=== PATIENT | male | born 1990 | race Two or more races ===

== ENCOUNTER 2017-09-27 01:56 | Inpatient (IN) | payer MEDICAID ==
[~2017-09-27] VITALS: Ht 175.3 cm; Wt 66.7 kg
[2017-09-27] VITALS (11 sets, daily range): BP systolic 107–140; BP diastolic 61–93
[2017-09-27] MEDS ORDERED: LORazepam 2 MG TABLET PO PRN (04:00)
[2017-09-27] MEDS ORDERED: ONDANSETRON HCL 4 MG TABLET PO PRN (06:45)
[2017-09-27] MEDS ORDERED: CloNIDine HCL 0.1 MG TABLET PO PRN (06:45)
[2017-09-27] MEDS ORDERED: IBUPROFEN 400 MG TABLET PO PRN (06:45)
[2017-09-27] MEDS ORDERED: MAGNESIUM HYDROXIDE SUSPENSION 30 ML UDCUP PO PRN (06:45)
[2017-09-27] MEDS ORDERED: MAG HYDROX/AL HYDROX/SIMETH ES 30 ML SUSPENSION UDCUP PO PRN (06:45)
[2017-09-27] MEDS ORDERED: DOCUSATE SODIUM 100 MG CAPSULE PO PRN (06:45)
[2017-09-27] MEDS ORDERED: LOPERAMIDE HCL 2 MG CAPSULE PO PRN (06:45)
[2017-09-27] MEDS ORDERED: ACETAMINOPHEN 325 MG TABLET PO PRN (06:45)
[2017-09-27] MEDS ORDERED: ALBUTEROL SULFATE HFA 90 MCG/PUFF 8 GM INHALER IH PRN (06:45)
[2017-09-27] MEDS ORDERED: PETROLATUM,WHITE 71 GM JELLY TP PRN (06:45)
[2017-09-27] MEDS: NICOTINE 14 MG/24 HOUR PATCH TD SCH (08:31)
[2017-09-27 08:49] LABS: EOSINOPHILS % (AUTO) 3.1 % (1.0-6.0); HEMATOCRIT 45.8 % (41-53); HEMOGLOBIN 15.2 g/dL (13.5-17.5); MEAN CORPUSCULAR HGB CONC 33.2 G/dL (31.0-37.0); MEAN CORPUSCULAR VOLUME 87 fL (80-100); MONOCYTES # (AUTO) 0.6 K/uL (0.1-1.0); MONOCYTES % (AUTO) 7.9 % (2.0-9.0); NEUTROPHILS # (AUTO) 3.4 K/uL (1.8-7.7); PLATELET COUNT (AUTO) 288 K/uL (150-450); RED BLOOD CELL COUNT(AUTO) 5.24 MIL/uL (4.50-5.90); RED CELL DISTRIBUTION WIDTH 13.7 % (11.5-14.5)
[2017-09-27 08:59] LABS: HEMOGLOBIN A1C 5.6 % (4.5-6.2)
[2017-09-27 09:04] LABS: AMPHET/METH SCREEN,URINE NEGATIVE (NEGATIVE); BARBITURATE SCREEN, URINE NEGATIVE (NEGATIVE); BENZODIAZEPINES SCREEN,URINE NEGATIVE (NEGATIVE); CANNABINOID SCREEN,URINE POSITIVE (NEGATIVE); COCAINE SCREEN,URINE POSITIVE (NEGATIVE); METHADONE SCREEN, URINE NEGATIVE (NEGATIVE); OPIATE SCREEN,URINE NEGATIVE (NEGATIVE); PHENCYCLIDINE SCREEN,URINE NEGATIVE (NEGATIVE)
[2017-09-27 09:18] LABS: ALANINE AMINOTRANSFERASE 32 U/L (12-78); ALKALINE PHOSPHATASE 89 U/L (46-116); ANION GAP 10 mmol/L (8-16); ASPARTATE AMINOTRANSFERASE 41 U/L (15-37); BILIRUBIN,TOTAL 0.5 mg/dL (0.1-1.0); CALCIUM, TOTAL 8.2 mg/dL (8.8-10.5); CARBON DIOXIDE 27 mmol/L (22-29); CHLORIDE 103 mmol/L (98-107); CHOL/HDL RATIO 2.7 (4.2-7.3); CHOLESTEROL 168 mg/dL (131-200); CREATININE 1.14 mg/dL (0.60-1.30); FREE T4 (FREE THYROXINE) 0.73 ng/dL (0.76-1.46); GLOMERULAR FILTR. RATE CALC > 60 mL/min (>60); GLUCOSE,RANDOM 80 mg/dL (70-110); HDL CHOLESTEROL 63 mg/dL (40-60); LDL CHOL (CALC.) 89 mg/dL (0-130); POTASSIUM 3.7 mmol/L (3.5-5.1); SODIUM SERUM 140 mmol/L (136-145); THYROID STIMULATING HORMONE 1.23 uIU/mL (0.36-3.74); TOTAL PROTEIN, SERUM 7.7 g/dL (6.4-8.2); TRIGLYCERIDES 80 mg/dL (15-150); UREA NITROGEN, BLOOD 8 mg/dL (7-18)
[2017-09-27] MEDS: FLUoxetine HCL 20 MG CAPSULE PO SCH (11:32)
[2017-09-28 03:15] VITALS: BP 140/72
[2017-09-28 06:05] VITALS: BP 135/75
[2017-09-28 07:20] VITALS: BP 135/82
[2017-09-28] MEDS: FLUoxetine HCL 20 MG CAPSULE PO SCH (08:45)
[2017-09-28] MEDS: NICOTINE 14 MG/24 HOUR PATCH TD SCH (08:45)
[2017-09-28 08:46] VITALS: BP 135/81
[2017-09-28 16:10] VITALS: BP 138/89
[2017-09-28 19:46] VITALS: BP 138/89
[2017-09-28] MEDS: ZOLPIDEM TARTRATE 10 MG TABLET PO PRN (21:37)
[2017-09-29 01:30] VITALS: BP 136/88
[2017-09-29 01:45] VITALS: BP 136/86
[2017-09-29 08:00] VITALS: BP 114/68
[2017-09-29] MEDS: NICOTINE 14 MG/24 HOUR PATCH TD SCH ×2 (08:48→09:00)
[2017-09-29] MEDS: FLUoxetine HCL 20 MG CAPSULE PO SCH ×2 (08:48→09:00)
[2017-09-29 08:49] VITALS: BP 114/68
[2017-09-29 16:00] VITALS: BP 130/86
[2017-09-29 16:23] VITALS: BP 130/86
[2017-09-30 01:10] VITALS: BP 129/75
[2017-09-30 02:30] VITALS: BP 129/79
[2017-09-30 08:10] VITALS: BP 142/83
[2017-09-30] MEDS: NICOTINE 14 MG/24 HOUR PATCH TD SCH (09:00)
[2017-09-30] MEDS: FLUoxetine HCL 20 MG CAPSULE PO SCH (09:00)
[2017-09-30 16:00] VITALS: BP 137/93
[2017-09-30 16:55] VITALS: BP 137/93
[2017-09-30] MEDS: ZOLPIDEM TARTRATE 10 MG TABLET PO PRN (21:14)
[2017-10-01 05:48] VITALS: BP 138/82
[2017-10-01 08:00] VITALS: BP 119/78
[2017-10-01] MEDS: FLUoxetine HCL 20 MG CAPSULE PO SCH (08:44)
[2017-10-01] MEDS: NICOTINE 14 MG/24 HOUR PATCH TD SCH (08:47)
[2017-10-01] MEDS ORDERED: FLUO-191 PO (10:27)
== END 2017-10-01 17:30 | disposition home or self-care (01) | DRG 751 ==
LOC: B2S 04:07
PROVIDERS: ADMIT Psychiatry & Neurology Child & Adolescent Psychiatry; ATTEND Psychiatry & Neurology Child & Adolescent Psychiatry
DX: F33.2 Major depressive disorder, recurrent severe without psychotic features (principal); E02 Subclinical iodine-deficiency hypothyroidism; F10.10 Alcohol abuse, uncomplicated; G47.00 Insomnia, unspecified; F41.9 Anxiety disorder, unspecified; F12.90 Cannabis use, unspecified, uncomplicated; F14.90 Cocaine use, unspecified, uncomplicated; F19.10 Other psychoactive substance abuse, uncomplicated; Z71.41 Alcohol abuse counseling and surveillance of alcoholic; Z71.51 Drug abuse counseling and surveillance of drug abuser
CPT/HCPCS: 80074; 80307; 83036; 84439; 84443; 86592